=== PATIENT | male | born 1960 | race American Indian/Alaskan Native ===

== ENCOUNTER 2024-06-26 07:08 | Emergency (ER) | payer BC, MEDICARE ==
[~2024-06-26] VITALS: Ht 180.3 cm; Wt 126.5 kg
[~2024-06-26 07:08] MED LIST: ASCO500C18 PO; CARV-50 PO; INDO-12 PO; LOSA-415 PO; METR-159 PO; OMEP20TA23 PO; ONDA-243 PO
[2024-06-26 08:55] LABS: BASOPHILS % (AUTO) 0.5 % (0-1); EOSINOPHILS # (AUTO) 0.1 X10'3 (0-0.9); EOSINOPHILS % (AUTO) 1.7 % (0-6); HEMATOCRIT 46.2 % (42.0-52.0); HEMOGLOBIN 15.3 g/dl (14.0-17.9); LYMPHOCYTES # (AUTO) 1.4 X10'3 (1.1-4.8); LYMPHOCYTES % (AUTO) 19.3 % (21-51); MEAN CORPUSCULAR HEMOGLOBIN 30.8 PG (27.0-31.0); MEAN CORPUSCULAR HGB CONC 33.1 g/dL (33.0-36.5); MEAN CORPUSCULAR VOLUME 92.8 FL (78-98); MEAN PLATELET VOLUME 9.2 FL (7.4-10.4); MONOCYTES # (AUTO) 0.5 X10'3 (0-0.9); MONOCYTES % (AUTO) 6.9 % (2-12); NEUTROPHILS # (AUTO) 5.3 X10'3 (1.8-7.7); NEUTROPHILS % (AUTO) 71.6 % (42-75); PLATELET COUNT 141 X10'3 (140-440); RED BLOOD COUNT 4.98 X10'6 (4.70-6.10); RED CELL DISTRIBUTION WIDTH 16.6 % (11.5-14.5); WHITE BLOOD COUNT 7.4 X10'3 (4.5-11.0)
[2024-06-26 09:08] LABS: ALANINE AMINOTRANSFERASE 26 U/L (12-78); ALBUMIN 3.5 G/DL (3.4-5.0); ALBUMIN/GLOBULIN RATIO 1.1 (1.1-1.5); ALKALINE PHOSPHATASE 49 IU/L (46-116); ANION GAP 6 (8-16); ASPARTATE AMINO TRANSFERASE 20 U/L (10-37); BILIRUBIN,TOTAL 1.9 MG/DL (0.1-1.0); BLOOD UREA NITROGEN 29 MG/DL (7-18); BUN/CREATININE RATIO 23.8 (10.0-20.0); CALCIUM 8.5 MG/DL (8.5-10.1); CHLORIDE 103 MMOL/L (99-107); CREATININE 1.22 MG/DL (0.60-1.10); GLUCOSE 222 MG/DL (70-104); SODIUM 142 MMOL/L (135-145); TOTAL CARBON DIOXIDE 32.9 MMOL/L (24-32); TOTAL PROTEIN 6.8 G/DL (6.4-8.2); eCRCL 64 ML/MIN; eGFR 60 ML/MIN
[2024-06-26 09:09] LABS: PRO BRAIN NATRIURETIC PEPTIDE 3538 PG/ML (0-125)
[2024-06-26] MEDS: furosemide 10 MG/1 ML 10ml inj IV ONE (10:12)
[2024-06-26 11:08] LABS: ABG BASE EXCESS 3.5 mmol/L (-2.0-3.0); ABG PCO2 (T) 50.7 mmHg (35.0-48.0); ABG PH (T) 7.386 (7.350-7.450); ALLEN'S TEST POSITIVE; FLOW 2 L/min; MODE NASAL CANNULA
[2024-06-26] MEDS ORDERED: FURO-150 PO (12:02)
[2024-06-26 12:10] VITALS: BP 145/96; PULSE 78; RESP 15; TEMP 97.9; O2SAT 95
== END 2024-06-26 12:13 | disposition home or self-care (01) ==
LOC: ER 07:09
DX: I50.9 Heart failure, unspecified (principal); I25.10 Atherosclerotic heart disease of native coronary artery without angina pectoris; Z88.5 Allergy status to narcotic agent; Z79.899 Other long term (current) drug therapy; Z95.1 Presence of aortocoronary bypass graft
CPT/HCPCS: 36415; 36600; 71045; 80053; 82803; 83880; 84484; 85025; 93005; 96374; 99285; A4615; J1940

== ENCOUNTER 2024-08-05 07:01 | Day surgery (SDC) | payer MEDICARE ==
[2024-08-04 12:19] LABS: BASOPHILS % (AUTO) 0.5 % (0-1); EOSINOPHILS # (AUTO) 0.2 X10'3 (0-0.9); EOSINOPHILS % (AUTO) 2.2 % (0-6); HEMATOCRIT 45.7 % (42.0-52.0); HEMOGLOBIN 15.6 g/dl (14.0-17.9); LYMPHOCYTES # (AUTO) 1.7 X10'3 (1.1-4.8); LYMPHOCYTES % (AUTO) 22.5 % (21-51); MEAN CORPUSCULAR HEMOGLOBIN 31.4 PG (27.0-31.0); MEAN CORPUSCULAR HGB CONC 34.2 g/dL (33.0-36.5); MEAN CORPUSCULAR VOLUME 91.9 FL (78-98); MEAN PLATELET VOLUME 9.3 FL (7.4-10.4); MONOCYTES # (AUTO) 0.7 X10'3 (0-0.9); NEUTROPHILS # (AUTO) 4.8 X10'3 (1.8-7.7); NEUTROPHILS % (AUTO) 65.8 % (42-75); PLATELET COUNT 178 X10'3 (140-440); RED BLOOD COUNT 4.98 X10'6 (4.70-6.10); RED CELL DISTRIBUTION WIDTH 16.4 % (11.5-14.5); WHITE BLOOD COUNT 7.3 X10'3 (4.5-11.0)
[2024-08-04 12:25] LABS: ANION GAP 9 (8-16); BLOOD UREA NITROGEN 58 MG/DL (7-18); BUN/CREATININE RATIO 34.7 (10.0-20.0); CALCIUM 8.4 MG/DL (8.5-10.1); CHLORIDE 103 MMOL/L (99-107); CREATININE 1.67 MG/DL (0.60-1.10); GLUCOSE 170 MG/DL (70-104); POTASSIUM 4.5 MMOL/L (3.5-5.1); SODIUM 140 MMOL/L (135-145); TOTAL CARBON DIOXIDE 28.5 MMOL/L (24-32); eGFR 41 ML/MIN
[2024-08-04 12:27] LABS: INR 1.1 INR; PROTHROMBIN TIME 11.4 SECONDS (9.0-12.0)
[~2024-08-05] VITALS: Ht 180.3 cm; Wt 118.8 kg
[2024-08-05] VITALS (36 sets, daily range): BP systolic 80–135; BP diastolic 45–78; PULSE 48–73; RESP 10–26; TEMP 97.7; O2SAT 95–98
[2024-08-05] MEDS ORDERED: LORazepam 0.5 MG tablet PO ONE (07:40)
[2024-08-05] MEDS ORDERED: diphenhydrAMINE 25mg capsule PO ONE (07:40)
[2024-08-05] MEDS ORDERED: atropine 0.1mg/ml 10ml syringe IV ONE (07:40)
[2024-08-05] MEDS ORDERED: FURO40TA4 PO (08:06)
[2024-08-05] MEDS ORDERED: SACU1TAB PO (08:06)
[2024-08-05] MEDS ORDERED: ROSU20TA98 PO (08:06)
[2024-08-05] MEDS ORDERED: AMIO400T5 (08:06)
[2024-08-05] MEDS ORDERED: FLO0.4C (08:06)
[2024-08-05] MEDS ORDERED: CARV25TA3 PO (08:06)
[2024-08-05] MEDS ORDERED: APIX5TAB3 PO (08:06)
[2024-08-05] MEDS ORDERED: TRAZ-251 PO (08:06)
[2024-08-05] MEDS ORDERED: FENO54TA PO (08:06)
[2024-08-05] MEDS ORDERED: OMEG-166 PO (08:06)
[2024-08-05] MEDS: morphine 10mg/ml inj. IV ONE (10:01)
[2024-08-05] MEDS: normal saline 1000ml 1,000 ML IV SCH (10:01)
[2024-08-05] MEDS: MIDAZolam 1mg/ml 10ml vial IV ONE (10:01)
[2024-08-05] MEDS: amiodarone 150mg/dext, iso-os 100 ML IV ONE (10:01)
== END 2024-08-05 11:35 | disposition home or self-care (01) ==
LOC: SSTAY O 07:01
PROVIDERS: ATTEND Internal Medicine Cardiovascular Disease
DX: I48.0 Paroxysmal atrial fibrillation (principal); R94.31 Abnormal electrocardiogram [ECG] [EKG]; I11.0 Hypertensive heart disease with heart failure; I50.22 Chronic systolic (congestive) heart failure; I25.10 Atherosclerotic heart disease of native coronary artery without angina pectoris; E78.5 Hyperlipidemia, unspecified; E66.9 Obesity, unspecified; J44.9 Chronic obstructive pulmonary disease, unspecified; G47.30 Sleep apnea, unspecified; I42.0 Dilated cardiomyopathy; I25.5 Ischemic cardiomyopathy; Z79.01 Long term (current) use of anticoagulants; Z79.899 Other long term (current) drug therapy; Z98.890 Other specified postprocedural states; Z68.36 Body mass index [BMI] 36.0-36.9, adult
CPT/HCPCS: 36415; 80048; 82948; 85025; 85610; 92960; 93005; J0282; J2250; J2270; J7030; Z7610; J2274